=== PATIENT | male | born 1980 | race Caucasian/White ===

== ENCOUNTER 2019-02-12 22:59 | Emergency (ER) | payer OTHER, SELFPAY ==
[2019-02-12 23:15] VITALS: BMI 22.5
--- NOTE | 2019-02-12 23:18 | DI.RAD.S_ITS ---
PROCEDURE: XR KNEE LT 3V INDICATIONS: piano fell on knee TECHNIQUE: 3 views of the knee were acquired. COMPARISON: None. FINDINGS: Bones: No displaced or depressed fracture identified. No dislocation. The joint spaces appear preserved. There is slight lateral tilt of the patella. Soft tissues: There is a moderate size joint effusion with a lipohemarthrosis. No suspicious soft tissue calcifications. IMPRESSION: 1. No displaced or depressed fracture. 2. Moderate-sized lipohemarthrosis is suspicious for an occult fracture. Consider further evaluation with cross-sectional imaging. Findings discussed with Dr. Liu on 02/13/19 at 9:25 AM. Dictated by: Nitin Chappell M.D. on 02/13/2019 at 9:22 Approved by: Nitin Chappell M.D. on 02/13/2019 at 9:25
[2019-02-12 23:22] VITALS: BP 104/71; PULSE 69; RESP 18; O2SAT 100
--- NOTE | 2019-02-12 23:49 | ED_ITS ---
HPI - Extremity Injury (Lower) General Chief Complaint: Extremity Injury, Lower Stated Complaint: Knee injury Time Seen by Provider: 02/12/19 23:49 Source: patient Mode of arrival: Ambulatory Limitations: no limitations History of Present Illness HPI Narrative: Patient is a 38-year-old male who presents with left knee pain. He says he was working on a piano in piano fell on top of his knee medially. He has significant pain it definitely hurts when he walks. Mild tingling sensation in his lower leg. MD complaint: knee injury Onset (ago): hour(s) Type of Injury: blunt Place: home Severity: moderate Relieving factors: nothing Exacerbating factors: weight bearing, movement and palpation Context: direct blow Associated symptoms: swelling and able to partially bear weight Other symptoms: none Treatments prior to arrival: cold therapy Related Data Home Medications Medication Instructions Recorded Confirmed loratadine [Claritin] 10 mg PO Q DAY #0 12/09/10 Allergies Allergy/AdvReac Type Severity Reaction Status Date / Time No Known Drug Allergies Allergy Verified 02/12/19 23:16 Review of Systems Review of Systems Narrative: GENERAL: Denies chills,fever HEENT: Denies throat pain RESPIRATORY: Denies dyspnea, cough, wheezing CARDIOVASCULAR: Denies chest pain, palpitations GASTROINTESTINAL: Denies nausea, vomiting MUSCULOSKELETAL: See HPI SKIN: No rash, no laceration, no pruritus NEUROLOGIC: Denies weakness, dizziness, headache, numbness 8 point review of systems is negative except for those stated above and HPI Patient History Medical History Patient denies medical problems (Acute) Social History Smoking Status: Never smoker Social History Smoking Status: Never smoker Substance Use Type: does not use Exam Initial Vital Signs Initial Vital Signs: Vital Signs Pulse Rate 69 02/12/19 23:22 Respiratory Rate 18 02/12/19 23:22 Blood Pressure 104/71 02/12/19 23:22 Pulse Oximetry 100 02/12/19 23:22 GENERAL: Well-appearing, well-nourished and in no acute distress. CARDIOVASCULAR: peripheral pulses in tact, cap refill <2 sec RESPIRATORY: No respiratory distress, speaks in full sentences without difficulty EXTREMITIES: Normal range of motion, no clubbing or edema. Neurovascularly intact Left lower extremity: Significant swelling superiorly tender medially stable anterior-posterior drawer distal pedal pulse intact. NEUROLOGICAL: Cranial nerves II through XII grossly intact. Normal gait and speech. SKIN: Warm, dry, no petechiae, no rashes or lesions. Course Orders Ordered: ED Orders 02/12/19 23:18 XR knee LT 3V Stat Discontinued Medications Ketorolac Tromethamine (Toradol) 30 mg IM NOW ONE Stop: 02/13/19 00:01 Last Admin: 02/13/19 00:04 Dose: 30 mg Documented by: ATILIO Vital Signs Vital signs: Vital Signs - 8 hr 02/12/19 23:22 02/13/19 00:16 Pulse Rate 69 77 Respiratory Rate 18 14 Blood Pressure 109/65 Blood Pressure [Right Arm] 104/71 Pulse Oximetry 100 99 MDM - Extremity Injury (Lower) Imaging Data Left knee x-ray: Attestation: I personally reviewed and interpreted this imaging study as follows: My impression: No fracture MDM Narrative Medical decision making narrative: Patient does have significant swelling contusion superior and medial of. His discussed with him using crutches knee brace elevation and ice. Also may require outpatient MRI or repeat x-ray if still having significant pain. Discharge Plan Departure Patient Disposition: Home Clinical Impression: Contusion of knee, left Qualifiers: Encounter type: initial encounter Qualified Code(s): S80.02XA - Contusion of left knee, initial encounter Discharge Date/Time: 02/13/19 00:16 Instructions: DI for Knee Sprain Activity Restrictions/Additional Instructions: *You have been diagnosed with left knee contusion *What to do: At this time x-ray is negative. May weight bear as tolerated you may require crutches. Recommend knee brace while active during the day. Ice 20 30 minutes at a time then removed. Elevate. You may require repeat x-ray in 7- 10 days if still having severe pain. He may also require MRI in a few weeks if continuing to have pain and swelling *Continue to take medications as directed Ibuprofen 800 mg every 8 hours with food *Follow up with your primary care provider in 2-3 days *Return to ER if you should have increasing pain, numbness tingling or any new, worsening or concerning symptoms Prescriptions: No Action loratadine [Claritin] 10 MG tablet 10 mg PO Q DAY Qty: 0 RF: 0 Referrals: Kelly Pagan MD [Primary Care Provider] -
[2019-02-13] MEDS: KETOROLAC 60 MG/2 ML VIAL 30 MG IM (00:04)
[2019-02-13 00:16] VITALS: BP 109/65; PULSE 77; RESP 14; O2SAT 99
== END 2019-02-13 00:16 | disposition home or self-care (01) ==
PROVIDERS: Emergency Provider Emergency Medicine; Family Provider Family Medicine; PCP Family Medicine
DX: S80.02XA Contusion of left knee, initial encounter (principal)
CPT/HCPCS: 73562; 96372; 99282; 99283; J1885

== ENCOUNTER 2019-02-13 14:57 | Emergency (ER) | payer OTHER, SELFPAY ==
--- NOTE | 2019-02-13 14:58 | DI.CT.S_ITS ---
PROCEDURE: CT LE LT W CON INDICATIONS: per radiology request, looking for occult fracture TECHNIQUE: Noncontrast 1-1.5 mm axial sections acquired from the mid-patella to the proximal tibia, with coronal and sagittal reformats. COMPARISON: [facility], CR, XR KNEE LT 3V, 02/12/2019, 23:21. FINDINGS: Image quality: Excellent. Bones: Left knee alignment is anatomic. Cortical disruption involving medial periphery of medial femoral condyle is noted suggestive of subtle avulsion fracture involving medial cortex of the femoral condyle at the medial collateral ligament insertion. In addition, there is subtle cortical irregularity involving lateral cortex of proximal tibia shaft just above the level of physis concerning for a subtle incomplete fracture involving lateral portion of proximal tibia. No depression of medial or lateral tibial plateau is seen. No other fracture or dislocation is noted. No patella subluxation. Soft tissues: Significant soft tissue swelling and edema over medial femoral condyle fracture site is seen. A large lipohemarthrosis is noted. Distal quadriceps tendon and patellar tendon are grossly intact. Posterior cruciate ligament is grossly intact. No calcified intra-articular loose body is seen. IMPRESSION: 1. Finding is suggestive of a subtle avulsion injury involving medial cortex of the medial femoral condyle at the proximal medial collateral ligament insertion with overlying soft tissue swelling and edema. 2. Suggestion of subtle incomplete fracture involving the lateral cortex of proximal tibial shaft just above the level of the physis. No evidence of tibial plateau depression. 3. Large lipohemarthrosis. No gross calcified intra-articular loose body. Dictated by: Victor M Cormier M.D. on 02/13/2019 at 16:08 Approved by: Victor M Cormier M.D. on 02/13/2019 at 16:17
[2019-02-13 15:01] VITALS: BP 120/74; PULSE 96; RESP 16; TEMP 36.8; O2SAT 97
--- NOTE | 2019-02-13 15:08 | PC.NURSE ---
Pt called back for CT of Left lower extremity to determine if there is occult fracture. + CSM distally to injury. Swelling worse but no s/s of compartment syndrome. Pain is controlled w/ current regimen.
--- NOTE | 2019-02-13 15:27 | ED.LOWEXIN ---
HPI - Extremity Injury (Lower) General Chief Complaint: Extremity Injury, Lower Stated Complaint: Left knee injury Time Seen by Provider: 02/13/19 15:16 Source: patient Mode of arrival: Ambulatory Limitations: no limitations History of Present Illness HPI Narrative: Patient returns to the emergency department for further evaluation of his left knee after being seen last night for left knee crush injury after piano fell on his leg. Patient was found to have what appeared to be negative x-rays at the time of visit last night was sent home with a knee immobilizer and crutches. However, I was notified by the radiologist this morning that while the bones do appear well, there appears to be a lipohemarthrosis, which radiologist feels is concerning for occult fracture. As such, the patient was called come back to the emergency department versus following up with his primary doctor in an expedited fashion to evaluate his knee with CT scan. Patient states that his pain is better today than it was last night, and he has been able to bear little bit of weight on the left lower extremity, but that it feels ?tight? and is quite enlarged. Related Data Home Medications Medication Instructions Recorded Confirmed loratadine [Claritin] 10 mg PO Q DAY #0 12/09/10 Previous Rx's Medication Instructions Recorded hydrocodone-acetaminophen [Whitmer] 1 tab PO Q4-6H PRN #20 tab 02/13/19 Allergies Allergy/AdvReac Type Severity Reaction Status Date / Time No Known Drug Allergies Allergy Verified 02/12/19 23:16 Review of Systems Constitutional Constitutional: Denies chills, Denies fatigue, Denies fever(s), Denies frequent falls, Denies lethargy and Denies weakness Eyes Eyes: Denies change in vision, Denies eye discharge, Denies irritation and Denies loss of vision ENT Ears, Nose, Mouth, and Throat: Denies change in voice, Denies dizziness, Denies neck pain, Denies sore throat and Denies throat swelling Cardiovascular Cardiovascular: Denies chest pain, Denies irregular heart rhythm, Denies lightheadedness, Denies palpitations, Denies dyspnea, Denies dyspnea on exertion and Denies orthopnea Respiratory Respiratory: Denies cough, Denies dyspnea, Denies dyspnea on exertion and Denies wheezing Gastrointestinal Gastrointestinal: Denies abdominal pain, Denies change in bowel habits, Denies diarrhea, Denies nausea and Denies vomiting Genitourinary Genitourinary: Denies hematuria, Denies flank pain, Denies urinary incontinence and Denies urinary urgency Musculoskeletal Musculoskeletal: Denies back pain, Denies muscle weakness, Denies neck pain, Denies numbness and Denies tingling Comments: Left knee pain and swelling Integumentary/Breasts Skin/Breast: Denies pruritus, Denies erythema, Denies rash and Denies wounds Neurologic Neurologic: Denies behavioral changes, Denies confusion, Denies dizziness, Denies frequent falls, Denies loss of vision, Denies numbness, Denies tingling and Denies weakness Psychiatric Psychiatric: Denies anxiety, Denies behavioral changes, Denies confusion, Denies depression, Denies homicidal ideation and Denies suicidal ideation Endocrine Endocrine: Denies fatigue, Denies flushing and Denies palpitations Hematologic/Lymphatic Hematologic/Lymphatic: Denies easy bruising Allergic/Immunologic Allergic/Immunologic: Denies urticaria, Denies throat swelling and Denies wheezing Patient History Medical History Patient denies medical problems (Acute) Social History Smoking Status: Never smoker Substance Use Type: does not use Exam Initial Vital Signs Initial Vital Signs: Vital Signs Temperature 98.2 F 02/13/19 15:01 Pulse Rate 96 H 02/13/19 15:01 Respiratory Rate 16 02/13/19 15:01 Blood Pressure 120/74 02/13/19 15:01 Pulse Oximetry 97 02/13/19 15:01 Const General: cooperative and well developed Nutritional Appearance: well nourished Orientation: alert, awake, oriented x3 and not confused [facility] Head: normocephalic and atraumatic Ears: external ears normal Nose: external nose normal and No nasal discharge Face and sinus: face symmetric and No dry mucous membranes Mouth: oral mucosae normal and moist mucous membranes Teeth and gingiva: dentition normal Eyes General: appearance normal, both eyes and all related structures Eyelids: eyelids normal Conjunctivae: conjunctivae normal Sclera: sclerae normal Pupils: PERRL EOM: EOM intact bilaterally Neck Neck: normal visual inspection, trachea midline, No lymphadenopathy, No midline deformity and No JVD Lymphatic: No lymphedema Chest Chest: normal inspection of the chest Resp Effort & Inspection: normal respiratory effort, able to speak in complete sentences, no respiratory distress and no use of accessory muscles Back/Spine/Pelvis Back: No CVA tenderness Cervical Spine: cervical ROM normal and No pain with cervical ROM Thoracic/Lumbar Spine: thoracic and lumbar spine normal to inspection Skin General: no rashes or lesions noted, No jaundice and No petechiae Neuro General: alert, oriented x3, gait normal and no focal motor deficits Speech: speech normal Extrem General: full ROM, no clubbing, cyanosis or edema, no pedal edema and no calf tenderness Psych Appearance: well kempt Mental Status: mental status grossly normal Attitude: cooperative Thought Content: normal and suicidality Judgment: judgment good Course Course Course Narrative: Patient was sent for CT scan of his knee, which showed a possible avulsion fracture and possible cortical fracture. I spoke with Dr. Joanne Wood, who is on-call for Orthopedics, and she recommended an MRI for diagnostic clarity. This was done, and showed similar findings. As per Dr. Wood recommendations, the patient was placed in a knee immobilizer. He already has crutches, and is instructed to remain nonweightbearing until he follows up in Orthopedics in about a week. The patient is advised regarding elevation and icing. He is given a prescription for narcotic analgesia to be taken as needed. We have discussed home management of symptoms, as well as the usual indications for return. Orders Ordered: ED Orders 02/13/19 14:58 CT LE LT wo con Stat Vital Signs Vital signs: Vital Signs - 8 hr 02/13/19 15:01 Temperature 98.2 F Pulse Rate 96 H Respiratory Rate 16 Blood Pressure 120/74 Pulse Oximetry 97 MDM - Extremity Injury (Lower) Medical Records Attestation: I reviewed the patient's medical records. Imaging Data CT knee: Radiologist's impression: PROCEDURE: CT LE LT W CON INDICATIONS: per radiology request, looking for occult fracture TECHNIQUE: Noncontrast 1-1.5 mm axial sections acquired from the mid-patella to the proximal tibia, with coronal and sagittal reformats. COMPARISON: Located [facility], CR, XR KNEE LT 3V, 02/12/2019, 23:21. FINDINGS: Image quality: Excellent. Bones: Left knee alignment is anatomic. Cortical disruption involving medial periphery of medial femoral condyle is noted suggestive of subtle avulsion fracture involving medial cortex of the femoral condyle at the medial collateral ligament insertion. In addition, there is subtle cortical irregularity involving lateral cortex of proximal tibia shaft just above the level of physis concerning for a subtle incomplete fracture involving lateral portion of proximal tibia. No depression of medial or lateral tibial plateau is seen. No other fracture or dislocation is noted. No patella subluxation. Soft tissues: Significant soft tissue swelling and edema over medial femoral condyle fracture site is seen. A large lipohemarthrosis is noted. Distal quadriceps tendon and patellar tendon are grossly intact. Posterior cruciate ligament is grossly intact. No calcified intra-articular loose body is seen. IMPRESSION: 1. Finding is suggestive of a subtle avulsion injury involving medial cortex of the medial femoral condyle at the proximal medial collateral ligament insertion with overlying soft tissue swelling and edema. 2. Suggestion of subtle incomplete fracture involving the lateral cortex of proximal tibial shaft just above the level of the physis. No evidence of tibial plateau depression. 3. Large lipohemarthrosis. No gross calcified intra-articular loose body. Dictated by: Victor M Cormier M.D. on 02/13/2019 at 16:08 Approved by: Victor M Cormier M.D. on 02/13/2019 at 16:17 MR knee: Radiologist's impression: PROCEDURE: MR KNEE LT WO CON INDICATIONS: femur/tib fx vs ligamentous injury TECHNIQUE: Noncontrast sagittal PD fast spin echo and T2 fast spin echo with fat saturation, sagittal 3-D FLASH with fat saturation; coronal T1 spin echo and PD fast spin echo with fat saturation, and axial PD fast spin echo with fat saturation through the knee. COMPARISON: None. FINDINGS: Image quality: Excellent. Menisci: The medial and lateral menisci demonstrate normal morphology and internal signal. The meniscal root ligaments appear intact. Cruciate ligaments: The anterior and posterior cruciate ligaments appear intact. Medial structures: Marked soft tissue swelling and edema with subcutaneous soft tissue hematoma formation over anteromedial aspect of right knee adjacent to medial femoral condyle is seen. There is suggestion of low grade partial-thickness tear involving medial collateral ligament at its medial femoral condyle insertion. No full-thickness MCL rupture. The posterior oblique ligament, semimembranosus tendon insertions, oblique popliteal ligament, and meniscocapsular junction appear intact. Visualized portions of the pes anserinus tendons appear normal. Lateral structures: The lateral collateral ligament, long and short heads of the biceps femoris tendon appear intact. The popliteus tendon appears normal; the popliteofibular ligament appears intact. The posterosuperior and anteroinferior popliteomeniscal fascicles appear intact. The arcuate and fabellofibular ligaments appear intact, on either side of the lateral inferior geniculate artery. Iliotibial band appears normal. Anterior structures: The quadriceps and patellar tendons appear intact. Patellar alignment is normal. No femoral trochlear dysplasia or ventral trochlear prominence. No edema in the infrapatellar fat pad. Bones and cartilage: Significant marrow edema along the medial periphery of the medial femoral condyle is seen. Mild edema along lateral periphery of the lateral femoral condyle is also seen. There is cortical disruption involving medial femoral condyle near proximal MCL insertion which was better appreciated on CT study and is consistent with acute avulsion injury in this area. Ill-defined linear hyperintense signal within lateral periphery of lateral femoral condyle, which may represent subcortical fracture versus contusion. There is also mild marrow edema involving medial and lateral periphery of proximal tibia near tibial plateau with subtle underlying linear hypointense signal concerning for incomplete fracture versus contusion in these areas. No displaced fracture is identified. Articulating cartilages are grossly intact. Joint space: There is large lipohemarthrosis. No Tolbert's cyst. No intra-articular loose body. Normal appearing synovial plicae are incidentally noted. IMPRESSION: 1. Finding is consistent with acute avulsion fracture involving the medial periphery of medial femoral condyle near MCL insertion with suggestion of low-grade proximal MCL partial-thickness tear. 2. Contusion versus incomplete subcortical fracture in lateral periphery of lateral femoral condyle, medial and lateral periphery of proximal tibia near the tibial plateau. 3. Large lipohemarthrosis. No gross intra-articular loose body. 4. Cruciate ligaments are intact. No evidence of focal meniscal tear. Distal quadriceps tendon and patellar tendon are intact. Dictated by: Victor M Cormier M.D. on 02/13/2019 at 18:26 Approved by: Victor M Cormier M.D. on 02/13/2019 at 18:32 Discharge Plan Departure Patient Disposition: Home Clinical Impression: Fracture of knee region Traumatic tear of medial collateral ligament of knee Qualifiers: Encounter type: initial encounter Laterality: left Qualified Code(s): S83.412A - Sprain of medial collateral ligament of left knee, initial encounter Discharge Date/Time: 10/16/19 19:25 Instructions: DI for Knee Sprain, DI for Fracture Activity Restrictions/Additional Instructions: Your case has been discussed with the on-call orthopedist, Dr. Wood. She would like you to wear the knee immobilizer and use crutches, and see her next week in clinic. Please take the pain medication as needed. Prescriptions: New hydrocodone-acetaminophen [Whitmer] 5-325 mg tablet 1 tab PO Q4-6H PRN (Reason: pain) Qty: 20 RF: 0 No Action loratadine [Claritin] 10 MG tablet 10 mg PO Q DAY Qty: 0 RF: 0 Referrals: Kelly Pagan MD [Primary Care Provider] -
--- NOTE | 2019-02-13 16:48 | DI.MRI.S_ITS ---
PROCEDURE: MR KNEE LT WO CON INDICATIONS: femur/tib fx vs ligamentous injury TECHNIQUE: Noncontrast sagittal PD fast spin echo and T2 fast spin echo with fat saturation, sagittal 3-D FLASH with fat saturation; coronal T1 spin echo and PD fast spin echo with fat saturation, and axial PD fast spin echo with fat saturation through the knee. COMPARISON: None. FINDINGS: Image quality: Excellent. Menisci: The medial and lateral menisci demonstrate normal morphology and internal signal. The meniscal root ligaments appear intact. Cruciate ligaments: The anterior and posterior cruciate ligaments appear intact. Medial structures: Marked soft tissue swelling and edema with subcutaneous soft tissue hematoma formation over anteromedial aspect of right knee adjacent to medial femoral condyle is seen. There is suggestion of low grade partial-thickness tear involving medial collateral ligament at its medial femoral condyle insertion. No full-thickness MCL rupture. The posterior oblique ligament, semimembranosus tendon insertions, oblique popliteal ligament, and meniscocapsular junction appear intact. Visualized portions of the pes anserinus tendons appear normal. Lateral structures: The lateral collateral ligament, long and short heads of the biceps femoris tendon appear intact. The popliteus tendon appears normal; the popliteofibular ligament appears intact. The posterosuperior and anteroinferior popliteomeniscal fascicles appear intact. The arcuate and fabellofibular ligaments appear intact, on either side of the lateral inferior geniculate artery. Iliotibial band appears normal. Anterior structures: The quadriceps and patellar tendons appear intact. Patellar alignment is normal. No femoral trochlear dysplasia or ventral trochlear prominence. No edema in the infrapatellar fat pad. Bones and cartilage: Significant marrow edema along the medial periphery of the medial femoral condyle is seen. Mild edema along lateral periphery of the lateral femoral condyle is also seen. There is cortical disruption involving medial femoral condyle near proximal MCL insertion which was better appreciated on CT study and is consistent with acute avulsion injury in this area. Ill-defined linear hyperintense signal within lateral periphery of lateral femoral condyle, which may represent subcortical fracture versus contusion. There is also mild marrow edema involving medial and lateral periphery of proximal tibia near tibial plateau with subtle underlying linear hypointense signal concerning for incomplete fracture versus contusion in these areas. No displaced fracture is identified. Articulating cartilages are grossly intact. Joint space: There is large lipohemarthrosis. No Tolbert's cyst. No intra-articular loose body. Normal appearing synovial plicae are incidentally noted. IMPRESSION: 1. Finding is consistent with acute avulsion fracture involving the medial periphery of medial femoral condyle near MCL insertion with suggestion of low-grade proximal MCL partial-thickness tear. 2. Contusion versus incomplete subcortical fracture in lateral periphery of lateral femoral condyle, medial and lateral periphery of proximal tibia near the tibial plateau. 3. Large lipohemarthrosis. No gross intra-articular loose body. 4. Cruciate ligaments are intact. No evidence of focal meniscal tear. Distal quadriceps tendon and patellar tendon are intact. Dictated by: Victor M Cormier M.D. on 02/13/2019 at 18:26 Approved by: Victor M Cormier M.D. on 02/13/2019 at 18:32
[2019-02-13 19:18] VITALS: BP 122/78; PULSE 72; RESP 18; O2SAT 100
== END 2019-02-13 19:25 | disposition home or self-care (01) ==
PROVIDERS: Emergency Provider Emergency Medicine; Family Provider Family Medicine; PCP Family Medicine
DX: S82.002A Unspecified fracture of left patella, initial encounter for closed fracture (principal); S83.412A Sprain of medial collateral ligament of left knee, initial encounter
CPT/HCPCS: 73700; 73721; 99283; 99284

== ENCOUNTER 2019-04-11 09:45 | Outpatient (RCR) | payer OTHER, SELFPAY ==
--- NOTE | 2019-03-06 17:22 | PT.OIE ---
Current Diagnoses Nondisplaced fracture of medial condyle of left femur, initial encounter for closed fracture (03/06/19) Sprain of medial collateral ligament of left knee, initial encounter (03/06/19) Past Medical History (Last Reviewed 02/13/19 @ 15:29 by Margoth Liu MD) Patient denies medical problems (Acute) Visit Care Team Role Provider Type Kelly Pagan MD Primary Care Provider Physician Specialty: [facility] Practice Address: [address] [place] [address], [facility] [place], [address] Email: [email or web address] Joanne Wood MD Attending Provider Physician Specialty: Orthopedic Surgery Address: [address] [place] [address], [place], [address] Email: [email or web address] Initial Evaluation PT-OP-A Visit Information Start: 03/06/19 13:48 Freq: Status: Active Protocol: Document 03/06/19 13:50 HH (Rec: 03/06/19 15:58 [id number]) Out-Patient Physical Therapy Visit Information Visit Information Visit Type Initial Evaluation Visit Note IE led by SAHARA Zamora Visit Start Time 13:50 Visit Stop Time 14:30 Total Visit Minutes 40 Visit Number 05/25 Number of BUSINESS CONTINUITY DIRECTOR Visits 0 Evaluation Information Evaluation Date 03/06/19 Precautions Precautions Avoid knee twisting, valgus, hopping, impact (will reassess duration of restrictions at appointment with Dr. Wood on 03/22/19) PT-OP-B Current Condition Start: 03/06/19 13:48 Freq: Status: Active Protocol: Document 03/06/19 13:50 HH (Rec: 03/06/19 15:58 [id number]) Current Condition History of Current Condition Onset Date 02/12/19 Current Complaints L knee pain, limited ROM, swelling, decreased L LE strength and balance History of Current Condition Pt presents to PT s/p 3 weeks following an accident in which an upright piano fell on the medial side of his L knee, trapping his leg against the ground. Pt went to the ER same day and had an X-ray which was initially negative, but was called back the next day d /t suspision of lipohemarthrosis. Pt had a CT scan and MRI and was diagnosed with a partial MCL tear and closed non displaced avulsion fx of medial condyle of L femur. Pt followed up with Dr. Wood who advised that knee was non-surgical but was given restrictions to keep knee movement in the sagittal plane and avoid twisting, valgus, and impact. Pt was given a hinged knee brace with medial and lateral suport and told to follow up at the end of March to assess healing. Currently pt reports being unable to bend his knee > 90 degrees. He notes that his main limitation is taking care of his 3 young children and playing with them as he is unable to bend down or get onto the floor. Pt also notes that he enjoys playing [employer] and would like to get back to that eventually. Prior Treatments and Tests 03/22/19 f/u appointment with Dr. Wood (4 week ioana from initial visit) Treatment Goals Patient/Caregiver Goals 1. To be able to get to the floor 2. To return to sports such as [employer]. 3. To play with / carry his children Prior Functional Status Baseline Function- ADL's Independent Baseline Function- Mobility Independent Current Functional Impairments (Reported) Functional Limitations- Mobility/Gait Pt reports feeling more unsteady with movement as his L leg feels weak. Functional Limitations- Recreation/ Unable to participate in Hobbies recreational activities. Functional Limitations- Other Pt unable to fully care for and play with his 3 young children as he has difficulty getting down to the floor. Unable to lift and carry objects. PT-OP-C Subjective Start: 03/06/19 13:48 Freq: Status: Active Protocol: Document 03/06/19 13:50 (Rec: 03/06/19 15:58 [id number]) OP-PT Subjective Patient Comments Patient Comments I am worried that my knee doesn't move much and it feels very tight. I would really like to get back to fully playing with my children. Patient Questionnaires Lower Extremity Functional Scale LEFS Score 76 LEFS Impairment 1 to 19% Impaired (Score 63-79 ) OP-PT Pain Assessment Location L medial knee joint line Intensity 2 Scale Used Numeric (1 - 10) Description Aching,Dull Frequency Occasional Pain Aggravating Factors Activity,Exercise,Standing, Stair Climbing,Bending,Lifting Other Pain Aggravating Factors Getting down onto floor Pain Alleviating Factors Inactivity Other Pain Alleviating Factors Bracing PT-OP-D Balance Start: 03/06/19 13:48 Freq: Status: Active Protocol: Document 03/06/19 13:50 HH (Rec: 03/06/19 15:58 [id number]) Balance Tests Single Limb Standing Single Limb- Right >1 min Single Limb- Left 25 sec without brace, increased ankle/knee strategy PT-OP-J Posture/Palpation/Skin Start: 03/06/19 13:48 Freq: Status: Active Protocol: Document 03/06/19 13:50 HH (Rec: 03/06/19 15:58 [id number]) Palpation Assessment Location L knee Palpation Location L knee Palpation Findings Edema,Soft Tissue Tightness, Tenderness Palpation Details General knee edema focal increase around medial knee. Tenderness with palpation over MCL and lateral retinacula. Increase warmth around knee and proximal calf. Skin Assessment Edema Assessment L LE Edema Type Non-Pitting Edema Appearance Puffy Subjective Edema Description Tightness Circumference Measurement R knee Location mid thigh (10 cm above patella superior pull), patella, tibial tuberosity Comments 47, 39, 35.5 L knee Location mid thigh, patella, tibial tuberosity Comments 44, 41, 35.5 Other Assessments Skin Assessment Comments Evidence of resolving bruises medial knee, anterior/medial salmon, medial gastroc PT-OP-K Range of Motion Start: 03/06/19 13:48 Freq: Status: Active Protocol: Document 03/06/19 13:50 HH (Rec: 03/06/19 15:58 [id number]) Knee Goniometric Range of Motion Knee Left Patient Position Supine Flexion Active (degrees) 105 Flexion Passive (degrees) 110 Extension Active (degrees) 2 Extension Passive (degrees) 4 Knee ROM Limitations Knee ROM Limitations Soft Tissue Tightness,Pain, Swelling PT-OP-L Special Tests Start: 03/06/19 13:48 Freq: Status: Active Protocol: Document 03/06/19 13:50 HH (Rec: 03/06/19 15:58 [id number]) Special Tests Other Special Tests Special Tests Unble to assess MCL integrity due to movement restriction from MD. (avoid pivoting/ valgus) -ve tenderness with palpation of calf Dorsalis pedis and posterior tibial pulses 2+ PT-OP-M Strength Start: 03/06/19 13:48 Freq: Status: Active Protocol: Document 03/06/19 13:50 (Rec: 03/06/19 15:58 [id number]) Knee Strength Knee Manual Muscle Testing Left Flexion (S2) 4 Good Extension (L3) 4- Good- Ankle/Foot Strength Ankle and Foot Manual Muscle Testing Left Reason Not Measured WFL PT-OP-Q Treatments Start: 03/06/19 13:48 Freq: Status: Active Protocol: Document 03/06/19 13:50 (Rec: 03/06/19 15:58 [id number]) Therapeutic Exercises Supine Exercises supine SLR Side left supine TKE Side left Equipment Used towel underneath L ankle heel slides Side left Comments as tolerated (end range to end range) Self-Care/Home Management Treatment Education Patient Education Home Exercise Program,Pain Management Other Education Educated pt on relevant anatomy using knee model as guide. Answered pt's questions re: healing time and ways to reduce swelling. Discussed icing for 10 minutes, 2-3 x/ day and movig knee more throughout day to improve swelling. PT-OP-T Assessment and Plan Start: 03/06/19 13:48 Freq: Status: Active Protocol: Document 03/06/19 13:50 (Rec: 03/06/19 15:58 [id number]) Physical Therapy Assessment Rehab Potential Rehabilitation Potential Excellent Evaluation Complexity Number of Personal Factors/Comorbidities 1-2 Number of Body Systems Impaired 1-2 Clinical Presentation at Evaluation Stable Impairments Impairments Activity Tolerance,Balance, Edema,Functional Activities, Functional Mobility,Gait,Pain, ROM,Sensation,Soft Tissue Mobility,Strength,Transfers Goals Anterior reach test Impairment Pt demonstrates excess knee strategy with SLS and limited L LE strength Short Term Goal (STG) Pt will complete anterior reach test with <6cm asymmetry to reduce risk of reinjury STG Duration 6 weeks [facility] Goal (LTG) Pt will complete anterior reach test with <4cm asymmetry and -ve dynamic valgus to indicate reduced risk of reinjury with return to impact activities LTG Duration 12 weeks ROM Impairment Knee AROM limited to 4-105 dg Short Term Goal (STG) Pt will achieve 0-115 dg AROM to improve ability to complete functional movements STG Duration 6 weeks [employer] Goal (LTG) Pt wlil achieve 0-125 dg AROM to improve ability to complete functional movements LTG Duration 12 weeks LEFS Impairment Pt scores 76 for LEFS STG Duration 6 weeks [facility] Goal (LTG) Pt will reach 0% impairment for LEFS to improve his quality of life LTG Duration 12 weeks Squat Impairment Pt is unable to perform any squatting activities Short Term Goal (STG) Pt will be able to perform semi-squat without compensatory weight shift to R side without increase in knee pain STG Duration 6 weeks [employer] As[employer] Goal (LTG) Pt will be able to perform full depth squat without compensatory weight shift to R side and without increase in knee pain, so pt is able to get to floor to play with his children. LTG Duration 12 weeks Assessment Summary Assessment Pt is a low-complexity 38 yo male presenting to PT 3 weeks s/p crush injury to L knee causing L MCL partial tear and medial femoral condyle non- displaced avulsion fx. Pt presents with cont L knee edema with >2 cm difference in mid patellar circumference L> R. Pt's knee edema is significantly limiting his ROM with AROM 4-105 dg flexion. Pt unable to achieve full TKE. Pt also demonstrates decreased L LE strength and balance with increased ankle and knee strategy with single leg stance. Pt reports his main functional limitations are being able to get down to the floor to play with his children and lifting/carrying them as well as the inability to participate in recreational activities. Pt responded well to introduction of HEP. Pt will benefit from skilled therapy to decrease L knee swelling, increase ROM, and strengthen L LE to improve his functional mobility and reduce his risk of reinjury with reintroduction of recreational activities. Physical Therapy Plan Frequency and Duration Frequency of Treatment 1-2x/week Duration of Treatment 12 weeks Plan of Care Start Date 03/06/19 Plan of Care End Date 05/29/19 Therapeutic Interventions Therapeutic Interventions Balance Training,Gait Training ,Home Exercise Program,Joint Mobilizations,Manual Therapy, Orthotic/Prosthetic Management ,Patient/Caregiver Education, Self-Care/Home Management,Soft Tissue Mobilization,Taping, Therapeutic Activities, Therapeutic Exercises Modalities Cold Pack/Ice Massage,Electric Stimulation,Hot Packs, Infrared Therapy Next Visit Focus/Plan Next Note Type Treatment Note Next Visit Plan Review HEP, reassess L knee edema MT to reduce L knee edema, increase ROM, address tissue tightness Progress LE strengthening, introduce SLS exercises Balance
--- NOTE | 2019-03-06 17:28 | PT.OTN ---
Current Diagnoses Nondisplaced fracture of medial condyle of left femur, initial encounter for closed fracture (03/06/19) Sprain of medial collateral ligament of left knee, initial encounter (03/06/19) Physical Therapy Treatment Note PT-OP-A Visit Information Start: 03/06/19 13:48 Freq: Status: Active Protocol: Document 03/06/19 13:50 HH (Rec: 03/06/19 15:58 [id number]) Out-Patient Physical Therapy Visit Information Visit Information Visit Type Initial Evaluation Visit Note IE led by SAHARA Zamora Visit Start Time 13:50 Visit Stop Time 14:30 Total Visit Minutes 40 Visit Number 05/25 Number of POOL CLEANER Visits 0 Evaluation Information Evaluation Date 03/06/19 Precautions Precautions Avoid knee twisting, valgus, hopping, impact (will reassess duration of restrictions at appointment with Dr. Wood on 03/22/19) PT-OP-B Current Condition Start: 03/06/19 13:48 Freq: Status: Active Protocol: Document 03/06/19 13:50 HH (Rec: 03/06/19 15:58 [id number]) Current Condition History of Current Condition Onset Date 02/12/19 Current Complaints L knee pain, limited ROM, swelling, decreased L LE strength and balance History of Current Condition Pt presents to PT s/p 3 weeks following an accident in which an upright piano fell on the medial side of his L knee, trapping his leg against the ground. Pt went to the ER same day and had an X-ray which was initially negative, but was called back the next day d /t suspision of lipohemarthrosis. Pt had a CT scan and MRI and was diagnosed with a partial MCL tear and closed non displaced avulsion fx of medial condyle of L femur. Pt followed up with Dr. Wood who advised that knee was non-surgical but was given restrictions to keep knee movement in the sagittal plane and avoid twisting, valgus, and impact. Pt was given a hinged knee brace with medial and lateral suport and told to follow up at the end of March to assess healing. Currently pt reports being unable to bend his knee > 90 degrees. He notes that his main limitation is taking care of his 3 young children and playing with them as he is unable to bend down or get onto the floor. Pt also notes that he enjoys playing [employer] and would like to get back to that eventually. Prior Treatments and Tests 03/22/19 f/u appointment with Dr. Wood (4 week ioana from initial visit) Treatment Goals Patient/Caregiver Goals 1. To be able to get to the floor 2. To return to sports such as [employer]. 3. To play with / carry his children Prior Functional Status Baseline Function- ADL's Independent Baseline Function- Mobility Independent Current Functional Impairments (Reported) Functional Limitations- Mobility/Gait Pt reports feeling more unsteady with movement as his L leg feels weak. Functional Limitations- Recreation/ Unable to participate in Hobbies recreational activities. Functional Limitations- Other Pt unable to fully care for and play with his 3 young children as he has difficulty getting down to the floor. Unable to lift and carry objects. PT-OP-C Subjective Start: 03/06/19 13:48 Freq: Status: Active Protocol: Document 03/06/19 13:50 HH (Rec: 03/06/19 15:58 [id number]) OP-PT Subjective Patient Comments Patient Comments I am worried that my knee doesn't move much and it feels very tight. I would really like to get back to fully playing with my children. Patient Questionnaires Lower Extremity Functional Scale LEFS Score 76 LEFS Impairment 1 to 19% Impaired (Score 63-79 ) OP-PT Pain Assessment Location L medial knee joint line Intensity 2 Scale Used Numeric (1 - 10) Description Aching,Dull Frequency Occasional Pain Aggravating Factors Activity,Exercise,Standing, Stair Climbing,Bending,Lifting Other Pain Aggravating Factors Getting down onto floor Pain Alleviating Factors Inactivity Other Pain Alleviating Factors Bracing PT-OP-D Balance Start: 03/06/19 13:48 Freq: Status: Active Protocol: Document 03/06/19 13:50 HH (Rec: 03/06/19 15:58 [id number]) Balance Tests Single Limb Standing Single Limb- Right >1 min Single Limb- Left 25 sec without brace, increased ankle/knee strategy PT-OP-J Posture/Palpation/Skin Start: 03/06/19 13:48 Freq: Status: Active Protocol: Document 03/06/19 13:50 HH (Rec: 03/06/19 15:58 [id number]) Palpation Assessment Location L knee Palpation Location L knee Palpation Findings Edema,Soft Tissue Tightness, Tenderness Palpation Details General knee edema focal increase around medial knee. Tenderness with palpation over MCL and lateral retinacula. Increase warmth around knee and proximal calf. Skin Assessment Edema Assessment L LE Edema Type Non-Pitting Edema Appearance Puffy Subjective Edema Description Tightness Circumference Measurement R knee Location mid thigh (10 cm above patella superior pull), patella, tibial tuberosity Comments 47, 39, 35.5 L knee Location mid thigh, patella, tibial tuberosity Comments 44, 41, 35.5 Other Assessments Skin Assessment Comments Evidence of resolving bruises medial knee, anterior/medial salmon, medial gastroc PT-OP-K Range of Motion Start: 03/06/19 13:48 Freq: Status: Active Protocol: Document 03/06/19 13:50 HH (Rec: 03/06/19 15:58 [id number]) Knee Goniometric Range of Motion Knee Left Patient Position Supine Flexion Active (degrees) 105 Flexion Passive (degrees) 110 Extension Active (degrees) 2 Extension Passive (degrees) 4 Knee ROM Limitations Knee ROM Limitations Soft Tissue Tightness,Pain, Swelling PT-OP-L Special Tests Start: 03/06/19 13:48 Freq: Status: Active Protocol: Document 03/06/19 13:50 HH (Rec: 03/06/19 15:58 [id number]) Special Tests Other Special Tests Special Tests Unble to assess MCL integrity due to movement restriction from MD. (avoid pivoting/ valgus) -ve tenderness with palpation of calf Dorsalis pedis and posterior tibial pulses 2+ PT-OP-M Strength Start: 03/06/19 13:48 Freq: Status: Active Protocol: Document 03/06/19 13:50 HH (Rec: 03/06/19 15:58 [id number]) Knee Strength Knee Manual Muscle Testing Left Flexion (S2) 4 Good Extension (L3) 4- Good- Ankle/Foot Strength Ankle and Foot Manual Muscle Testing Left Reason Not Measured WFL PT-OP-Q Treatments Start: 03/06/19 13:48 Freq: Status: Active Protocol: Document 03/06/19 13:50 HH (Rec: 03/06/19 15:58 [id number]) Therapeutic Exercises Supine Exercises supine SLR Side left supine TKE Side left Equipment Used towel underneath L ankle heel slides Side left Comments as tolerated (end range to end range) Self-Care/Home Management Treatment Education Patient Education Home Exercise Program,Pain Management Other Education Educated pt on relevant anatomy using knee model as guide. Answered pt's questions re: healing time and ways to reduce swelling. Discussed icing for 10 minutes, 2-3 x/ day and movig knee more throughout day to improve swelling. PT-OP-T Assessment and Plan Start: 03/06/19 13:48 Freq: Status: Active Protocol: Document 03/06/19 13:50 HH (Rec: 03/06/19 15:58 HH [id number]) Physical Therapy Assessment Rehab Potential Rehabilitation Potential Excellent Evaluation Complexity Number of Personal Factors/Comorbidities 1-2 Number of Body Systems Impaired 1-2 Clinical Presentation at Evaluation Stable Impairments Impairments Activity Tolerance,Balance, Edema,Functional Activities, Functional Mobility,Gait,Pain, ROM,Sensation,Soft Tissue Mobility,Strength,Transfers Goals Anterior reach test Impairment Pt demonstrates excess knee strategy with SLS and limited L LE strength Short Term Goal (STG) Pt will complete anterior reach test with <6cm asymmetry to reduce risk of reinjury STG Duration 6 weeks [facility] Goal (LTG) Pt will complete anterior reach test with <4cm asymmetry and -ve dynamic valgus to indicate reduced risk of reinjury with return to impact activities LTG Duration 12 weeks ROM Impairment Knee AROM limited to 4-105 dg Short Term Goal (STG) Pt will achieve 0-115 dg AROM to improve ability to complete functional movements STG Duration 6 weeks [employer] Wrapper Goal (LTG) Pt wlil achieve 0-125 dg AROM to improve ability to complete functional movements LTG Duration 12 weeks LEFS Impairment Pt scores 76 for LEFS STG Duration 6 weeks [employer] Wrapper Goal (LTG) Pt will reach 0% impairment for LEFS to improve his quality of life LTG Duration 12 weeks Squat Impairment Pt is unable to perform any squatting activities Short Term Goal (STG) Pt will be able to perform semi-squat without compensatory weight shift to R side without increase in knee pain STG Duration 6 weeks [employer] Wrapper Goal (LTG) Pt will be able to perform full depth squat without compensatory weight shift to R side and without increase in knee pain, so pt is able to get to floor to play with his children. LTG Duration 12 weeks Assessment Summary Assessment Pt is a low-complexity 38 yo male presenting to PT 3 weeks s/p crush injury to L knee causing L MCL partial tear and medial femoral condyle non- displaced avulsion fx. Pt presents with cont L knee edema with >2 cm difference in mid patellar circumference L> R. Pt's knee edema is significantly limiting his ROM with AROM 4-105 dg flexion. Pt unable to achieve full TKE. Pt also demonstrates decreased L LE strength and balance with increased ankle and knee strategy with single leg stance. Pt reports his main functional limitations are being able to get down to the floor to play with his children and lifting/carrying them as well as the inability to participate in recreational activities. Pt responded well to introduction of HEP. Pt will benefit from skilled therapy to decrease L knee swelling, increase ROM, and strengthen L LE to improve his functional mobility and reduce his risk of reinjury with reintroduction of recreational activities. Physical Therapy Plan Frequency and Duration Frequency of Treatment 1-2x/week Duration of Treatment 12 weeks Plan of Care Start Date 03/06/19 Plan of Care End Date 05/29/19 Therapeutic Interventions Therapeutic Interventions Balance Training,Gait Training ,Home Exercise Program,Joint Mobilizations,Manual Therapy, Orthotic/Prosthetic Management ,Patient/Caregiver Education, Self-Care/Home Management,Soft Tissue Mobilization,Taping, Therapeutic Activities, Therapeutic Exercises Modalities Cold Pack/Ice Massage,Electric Stimulation,Hot Packs, Infrared Therapy Next Visit Focus/Plan Next Note Type Treatment Note Next Visit Plan Review HEP, reassess L knee edema MT to reduce L knee edema, increase ROM, address tissue tightness Progress LE strengthening, introduce SLS exercises Balance
--- NOTE | 2019-03-14 09:47 | PT.OTN ---
Current Diagnoses Nondisplaced fracture of medial condyle of left femur, initial encounter for closed fracture (03/14/19) Sprain of medial collateral ligament of left knee, initial encounter (03/14/19) Physical Therapy Treatment Note PT-OP-A Visit Information Start: 03/06/19 13:48 Freq: Status: Active Protocol: Document 03/14/19 09:02 HH (Rec: 03/14/19 09:47 [id number]) Out-Patient Physical Therapy Visit Information Visit Information Visit Type Treatment Note Visit Note tx session led by SAHARA Zamora Visit Start Time 09:02 Visit Stop Time 09:46 Total Visit Minutes 44 Visit Number 06/25 Number of PERSONAL SHOPPER Visits 0 PT-OP-B Current Condition Start: 03/06/19 13:48 Freq: Status: Active Protocol: Document 03/06/19 13:50 HH (Rec: 03/06/19 15:58 HH [id number]) Current Condition History of Current Condition Onset Date 02/12/19 Current Complaints L knee pain, limited ROM, swelling, decreased L LE strength and balance History of Current Condition Pt presents to PT s/p 3 weeks following an accident in which an upright piano fell on the medial side of his L knee, trapping his leg against the ground. Pt went to the ER same day and had an X-ray which was initially negative, but was called back the next day d /t suspision of lipohemarthrosis. Pt had a CT scan and MRI and was diagnosed with a partial MCL tear and closed non displaced avulsion fx of medial condyle of L femur. Pt followed up with Dr. Wood who advised that knee was non-surgical but was given restrictions to keep knee movement in the sagittal plane and avoid twisting, valgus, and impact. Pt was given a hinged knee brace with medial and lateral suport and told to follow up at the end of March to assess healing. Currently pt reports being unable to bend his knee > 90 degrees. He notes that his main limitation is taking care of his 3 young children and playing with them as he is unable to bend down or get onto the floor. Pt also notes that he enjoys playing ultimate [email or web address] and would like to get back to that eventually. Prior Treatments and Tests 03/22/19 f/u appointment with Dr. Wood (4 week ioana from initial visit) Treatment Goals Patient/Caregiver Goals 1. To be able to get to the floor 2. To return to sports such as [employer]. 3. To play with / carry his children Prior Functional Status Baseline Function- ADL's Independent Baseline Function- Mobility Independent Current Functional Impairments (Reported) Functional Limitations- Mobility/Gait Pt reports feeling more unsteady with movement as his L leg feels weak. Functional Limitations- Recreation/ Unable to participate in Hobbies recreational activities. Functional Limitations- Other Pt unable to fully care for and play with his 3 young children as he has difficulty getting down to the floor. Unable to lift and carry objects. PT-OP-C Subjective Start: 03/06/19 13:48 Freq: Status: Active Protocol: Document 03/14/19 09:02 HH (Rec: 03/14/19 09:47 HH [id number]) OP-PT Subjective Patient Comments Patient Comments Alysha been doing my exercises and i am able to move more and easier but the brace seems to limit my movements now. Patient Reported Progress Improving PT-OP-D Balance Start: 03/06/19 13:48 Freq: Status: Active Protocol: Document 03/06/19 13:50 HH (Rec: 03/06/19 15:58 [id number]) Balance Tests Single Limb Standing Single Limb- Right >1 min Single Limb- Left 25 sec without brace, increased ankle/knee strategy PT-OP-J Posture/Palpation/Skin Start: 03/06/19 13:48 Freq: Status: Active Protocol: Document 03/06/19 13:50 HH (Rec: 03/06/19 15:58 [id number]) Palpation Assessment Location L knee Palpation Location L knee Palpation Findings Edema,Soft Tissue Tightness, Tenderness Palpation Details General knee edema focal increase around medial knee. Tenderness with palpation over MCL and lateral retinacula. Increase warmth around knee and proximal calf. Skin Assessment Edema Assessment L LE Edema Type Non-Pitting Edema Appearance Puffy Subjective Edema Description Tightness Circumference Measurement R knee Location mid thigh (10 cm above patella superior pull), patella, tibial tuberosity Comments 47, 39, 35.5 L knee Location mid thigh, patella, tibial tuberosity Comments 44, 41, 35.5 Other Assessments Skin Assessment Comments Evidence of resolving bruises medial knee, anterior/medial salmon, medial gastroc PT-OP-K Range of Motion Start: 03/06/19 13:48 Freq: Status: Active Protocol: Document 03/06/19 13:50 HH (Rec: 03/06/19 15:58 [id number]) Knee Goniometric Range of Motion Knee Left Patient Position Supine Flexion Active (degrees) 105 Flexion Passive (degrees) 110 Extension Active (degrees) 2 Extension Passive (degrees) 4 Knee ROM Limitations Knee ROM Limitations Soft Tissue Tightness,Pain, Swelling PT-OP-L Special Tests Start: 03/06/19 13:48 Freq: Status: Active Protocol: Document 03/06/19 13:50 HH (Rec: 03/06/19 15:58 [id number]) Special Tests Other Special Tests Special Tests Unble to assess MCL integrity due to movement restriction from MD. (avoid pivoting/ valgus) -ve tenderness with palpation of calf Dorsalis pedis and posterior tibial pulses 2+ PT-OP-M Strength Start: 03/06/19 13:48 Freq: Status: Active Protocol: Document 03/06/19 13:50 HH (Rec: 03/06/19 15:58 [id number]) Knee Strength Knee Manual Muscle Testing Left Flexion (S2) 4 Good Extension (L3) 4- Good- Ankle/Foot Strength Ankle and Foot Manual Muscle Testing Left Reason Not Measured WFL PT-OP-Q Treatments Start: 03/06/19 13:48 Freq: Status: Active Protocol: Document 03/14/19 09:02 HH (Rec: 03/14/19 09:47 [id number]) Gym Equipment Shuttle Recovery heel raise Details unilateral. Resistance 50# Shuttle Recovery Platform Stable Reps/Time 12 x 2 uni squat Details 50# on L, 75# on R Resistance 50# -75# Shuttle Recovery Platform Stable Reps/Time 10 x2 B squat Resistance 50#- 75# Shuttle Recovery Platform Stable Reps/Time 12 x 2 Therapeutic Exercises Standing Exercises step up Standing Exercise Name 4 and 6 Side bilateral Reps/Minutes 12 x 2 Comments cues on slow eccentric control Manual Therapy Treatment Soft Tissue Mobilization joint fluid drainage Body Location L medial knee Mobilization Type Rolling,Sustained Pressure, Other Intensity/Depth Superficial Body Position Supine Comments proximal stroke PT-OP-T Assessment and Plan Start: 03/06/19 13:48 Freq: Status: Active Protocol: Document 03/14/19 09:02 HH (Rec: 03/14/19 09:47 HH [id number]) Physical Therapy Assessment Goals Anterior reach test Impairment Pt demonstrates excess knee strategy with SLS and limited L LE strength Short Term Goal (STG) Pt will complete anterior reach test with <6cm asymmetry to reduce risk of reinjury STG Duration 6 weeks Prison Goal (LTG) Pt will complete anterior reach test with <4cm asymmetry and -ve dynamic valgus to indicate reduced risk of reinjury with return to impact activities LTG Duration 12 weeks ROM Impairment Knee AROM limited to 4-105 dg Short Term Goal (STG) Pt will achieve 0-115 dg AROM to improve ability to complete functional movements STG Duration 6 weeks Zig Zag Stitcher Goal (LTG) Pt wlil achieve 0-125 dg AROM to improve ability to complete functional movements LTG Duration 12 weeks LEFS Impairment Pt scores 76 for LEFS STG Duration 6 weeks Zig Zag Stitcher Goal (LTG) Pt will reach 0% impairment for LEFS to improve his quality of life LTG Duration 12 weeks Squat Impairment Pt is unable to perform any squatting activities Short Term Goal (STG) Pt will be able to perform semi-squat without compensatory weight shift to R side without increase in knee pain STG Duration 6 weeks Zig Zag Stitcher Goal (LTG) Pt will be able to perform full depth squat without compensatory weight shift to R side and without increase in knee pain, so pt is able to get to floor to play with his children. LTG Duration 12 weeks Assessment Summary Assessment Pt is 4 weeks s/p injury. ROM knee PROM ext= -2 degrees, 0 degree with quad activation. A /PROM flexion= 115 degrees. He was able to reach 120 degrees for L knee flexoin after manual therapy. R single leg squat from table = 17.5 inches , L = 21.5 inches. Pt overall presents instability during step up/ leg press ex. Physical Therapy Plan Next Visit Focus/Plan Next Note Type Treatment Note Next Visit Plan Review HEP, reassess L knee edema MT to reduce L knee edema, increase ROM, address tissue tightness Progress LE strengthening, introduce SLS exercises Balance
--- NOTE | 2019-03-21 09:47 | PT.OTN ---
Current Diagnoses Nondisplaced fracture of medial condyle of left femur, initial encounter for closed fracture (03/21/19) Sprain of medial collateral ligament of left knee, initial encounter (03/21/19) Physical Therapy Treatment Note PT-OP-A Visit Information Start: 03/06/19 13:48 Freq: Status: Active Protocol: Document 03/21/19 09:02 HH (Rec: 03/21/19 09:47 [id number]) Out-Patient Physical Therapy Visit Information Visit Information Visit Type Treatment Note Visit Note tx session led by SAHARA Zamora Visit Start Time 09:02 Visit Stop Time 09:46 Total Visit Minutes 44 Visit Number 07/23 Number of MATERIAL ANALYST Visits 0 PT-OP-B Current Condition Start: 03/06/19 13:48 Freq: Status: Active Protocol: Document 03/06/19 13:50 HH (Rec: 03/06/19 15:58 HH [id number]) Current Condition History of Current Condition Onset Date 02/12/19 Current Complaints L knee pain, limited ROM, swelling, decreased L LE strength and balance History of Current Condition Pt presents to PT s/p 3 weeks following an accident in which an upright piano fell on the medial side of his L knee, trapping his leg against the ground. Pt went to the ER same day and had an X-ray which was initially negative, but was called back the next day d /t suspision of lipohemarthrosis. Pt had a CT scan and MRI and was diagnosed with a partial MCL tear and closed non displaced avulsion fx of medial condyle of L femur. Pt followed up with Dr. Wood who advised that knee was non-surgical but was given restrictions to keep knee movement in the sagittal plane and avoid twisting, valgus, and impact. Pt was given a hinged knee brace with medial and lateral suport and told to follow up at the end of March to assess healing. Currently pt reports being unable to bend his knee > 90 degrees. He notes that his main limitation is taking care of his 3 young children and playing with them as he is unable to bend down or get onto the floor. Pt also notes that he enjoys playing ultimate [employer] and would like to get back to that eventually. Prior Treatments and Tests 03/22/19 f/u appointment with Dr. oWod (4 week ioana from initial visit) Treatment Goals Patient/Caregiver Goals 1. To be able to get to the floor 2. To return to sports such as [employer]. 3. To play with / carry his children Prior Functional Status Baseline Function- ADL's Independent Baseline Function- Mobility Independent Current Functional Impairments (Reported) Functional Limitations- Mobility/Gait Pt reports feeling more unsteady with movement as his L leg feels weak. Functional Limitations- Recreation/ Unable to participate in Hobbies recreational activities. Functional Limitations- Other Pt unable to fully care for and play with his 3 young children as he has difficulty getting down to the floor. Unable to lift and carry objects. PT-OP-C Subjective Start: 03/06/19 13:48 Freq: Status: Active Protocol: Document 03/21/19 09:02 HH (Rec: 03/21/19 09:47 HH [id number]) OP-PT Subjective Patient Comments Patient Comments I didnt get too sore from last time and alysha been walking more. Alysha been using my brace less as well. Im going to see my doctor tomorrow for /u. Patient Reported Progress Improving PT-OP-D Balance Start: 03/06/19 13:48 Freq: Status: Active Protocol: Document 03/06/19 13:50 HH (Rec: 03/06/19 15:58 [id number]) Balance Tests Single Limb Standing Single Limb- Right >1 min Single Limb- Left 25 sec without brace, increased ankle/knee strategy PT-OP-J Posture/Palpation/Skin Start: 03/06/19 13:48 Freq: Status: Active Protocol: Document 03/06/19 13:50 HH (Rec: 03/06/19 15:58 [id number]) Palpation Assessment Location L knee Palpation Location L knee Palpation Findings Edema,Soft Tissue Tightness, Tenderness Palpation Details General knee edema focal increase around medial knee. Tenderness with palpation over MCL and lateral retinacula. Increase warmth around knee and proximal calf. Skin Assessment Edema Assessment L LE Edema Type Non-Pitting Edema Appearance Puffy Subjective Edema Description Tightness Circumference Measurement R knee Location mid thigh (10 cm above patella superior pull), patella, tibial tuberosity Comments 47, 39, 35.5 L knee Location mid thigh, patella, tibial tuberosity Comments 44, 41, 35.5 Other Assessments Skin Assessment Comments Evidence of resolving bruises medial knee, anterior/medial salmon, medial gastroc PT-OP-K Range of Motion Start: 03/06/19 13:48 Freq: Status: Active Protocol: Document 03/06/19 13:50 HH (Rec: 03/06/19 15:58 [id number]) Knee Goniometric Range of Motion Knee Left Patient Position Supine Flexion Active (degrees) 105 Flexion Passive (degrees) 110 Extension Active (degrees) 2 Extension Passive (degrees) 4 Knee ROM Limitations Knee ROM Limitations Soft Tissue Tightness,Pain, Swelling PT-OP-L Special Tests Start: 03/06/19 13:48 Freq: Status: Active Protocol: Document 03/06/19 13:50 HH (Rec: 03/06/19 15:58 [id number]) Special Tests Other Special Tests Special Tests Unble to assess MCL integrity due to movement restriction from MD. (avoid pivoting/ valgus) -ve tenderness with palpation of calf Dorsalis pedis and posterior tibial pulses 2+ PT-OP-M Strength Start: 03/06/19 13:48 Freq: Status: Active Protocol: Document 03/06/19 13:50 HH (Rec: 03/06/19 15:58 [id number]) Knee Strength Knee Manual Muscle Testing Left Flexion (S2) 4 Good Extension (L3) 4- Good- Ankle/Foot Strength Ankle and Foot Manual Muscle Testing Left Reason Not Measured WFL PT-OP-Q Treatments Start: 03/06/19 13:48 Freq: Status: Active Protocol: Document 03/21/19 09:02 HH (Rec: 03/21/19 09:47 [id number]) Therapeutic Exercises Supine Exercises heel slides Side left Comments as tolerated (end range to end range) Standing Exercises TKE Side left Equipment Used level 2 Reps/Minutes 20 x 2 Comments TKE, followed by SLS with L TKE. Gait Training Gait Activity dejan Description L SLS Device Used dejan Surface ground level Distance/Duration in place Treatment Focus SLS on L with L TKE Comments level 2 band on L knee maintaining TKE while R LE step over. Manual Therapy Treatment Soft Tissue Mobilization joint fluid drainage Body Location L medial knee Mobilization Type Rolling,Sustained Pressure, Other Intensity/Depth Superficial Body Position Supine Comments proximal stroke Taping KT Body Location L knee Treatment Focus fluid drainage Type of Tape Kinesio Tape Skin Inspection good Comments 2 I finger strip, and anchor at VMO and lateralis PT-OP-T Assessment and Plan Start: 03/06/19 13:48 Freq: Status: Active Protocol: Document 03/21/19 09:02 (Rec: 03/21/19 09:47 [id number]) Physical Therapy Assessment Goals Anterior reach test Impairment Pt demonstrates excess knee strategy with SLS and limited L LE strength Short Term Goal (STG) Pt will complete anterior reach test with <6cm asymmetry to reduce risk of reinjury STG Duration 6 weeks Halfway Goal (LTG) Pt will complete anterior reach test with <4cm asymmetry and -ve dynamic valgus to indicate reduced risk of reinjury with return to impact activities LTG Duration 12 weeks ROM Impairment Knee AROM limited to 4-105 dg Short Term Goal (STG) Pt will achieve 0-115 dg AROM to improve ability to complete functional movements STG Duration 6 weeks Halfway Goal (LTG) Pt wlil achieve 0-125 dg AROM to improve ability to complete functional movements LTG Duration 12 weeks LEFS Impairment Pt scores 76 for LEFS STG Duration 6 weeks Commercial Property Administrator Goal (LTG) Pt will reach 0% impairment for LEFS to improve his quality of life LTG Duration 12 weeks Assessment Summary Assessment L knee AROM ext= 0 degree, relaxed= -3 to -5 degree; flexion AROM= 125 degree. Mid- patella=40.5 cm. Pt reports he doesnt have much pain at this point but does have instability for sagittal plane movements. Focused on gait training (stance phase) with maintaining TKE on L Physical Therapy Plan Next Visit Focus/Plan Next Note Type Treatment Note Next Visit Plan Review HEP, reassess L knee edema MT to reduce L knee edema, increase ROM, address tissue tightness Progress LE strengthening, introduce SLS exercises Balance
--- NOTE | 2019-03-26 16:52 | PT.OTN ---
Current Diagnoses Nondisplaced fracture of medial condyle of left femur, initial encounter for closed fracture (03/26/19) Sprain of medial collateral ligament of left knee, initial encounter (03/26/19) Physical Therapy Treatment Note PT-OP-A Visit Information Start: 03/06/19 13:48 Freq: Status: Active Protocol: Document 03/26/19 16:05 HH (Rec: 03/26/19 16:43 [id number]) Out-Patient Physical Therapy Visit Information Visit Information Visit Type Treatment Note Visit Note tx session led by SAHARA Zamora Visit Start Time 16:05 Visit Stop Time 16:46 Total Visit Minutes 41 Visit Number 08/23 Number of FURNACE AND WASH EQUIPMENT OPERATOR Visits 0 PT-OP-B Current Condition Start: 03/06/19 13:48 Freq: Status: Active Protocol: Document 03/06/19 13:50 HH (Rec: 03/06/19 15:58 [id number]) Current Condition History of Current Condition Onset Date 02/12/19 Current Complaints L knee pain, limited ROM, swelling, decreased L LE strength and balance History of Current Condition Pt presents to PT s/p 3 weeks following an accident in which an upright piano fell on the medial side of his L knee, trapping his leg against the ground. Pt went to the ER same day and had an X-ray which was initially negative, but was called back the next day d /t suspision of lipohemarthrosis. Pt had a CT scan and MRI and was diagnosed with a partial MCL tear and closed non displaced avulsion fx of medial condyle of L femur. Pt followed up with Dr. Wood who advised that knee was non-surgical but was given restrictions to keep knee movement in the sagittal plane and avoid twisting, valgus, and impact. Pt was given a hinged knee brace with medial and lateral suport and told to follow up at the end of March to assess healing. Currently pt reports being unable to bend his knee > 90 degrees. He notes that his main limitation is taking care of his 3 young children and playing with them as he is unable to bend down or get onto the floor. Pt also notes that he enjoys playing ultimate [employer] and would like to get back to that eventually. Prior Treatments and Tests 03/22/19 f/u appointment with Dr. Wood (4 week ioana from initial visit) Treatment Goals Patient/Caregiver Goals 1. To be able to get to the floor 2. To return to sports such as [employer]. 3. To play with / carry his children Prior Functional Status Baseline Function- ADL's Independent Baseline Function- Mobility Independent Current Functional Impairments (Reported) Functional Limitations- Mobility/Gait Pt reports feeling more unsteady with movement as his L leg feels weak. Functional Limitations- Recreation/ Unable to participate in Hobbies recreational activities. Functional Limitations- Other Pt unable to fully care for and play with his 3 young children as he has difficulty getting down to the floor. Unable to lift and carry objects. PT-OP-C Subjective Start: 03/06/19 13:48 Freq: Status: Active Protocol: Document 03/26/19 16:05 HH (Rec: 03/26/19 16:43 HH [id number]) OP-PT Subjective Patient Comments Patient Comments I saw Dr. Wood and she said my bone is almost completely healed and just only slight instability for my MCL. She still recommended me to be cautious with multiplanar movements. Besides, my knee ROM is getting better. Patient Reported Progress Improving PT-OP-D Balance Start: 03/06/19 13:48 Freq: Status: Active Protocol: Document 03/06/19 13:50 HH (Rec: 03/06/19 15:58 [id number]) Balance Tests Single Limb Standing Single Limb- Right >1 min Single Limb- Left 25 sec without brace, increased ankle/knee strategy PT-OP-J Posture/Palpation/Skin Start: 03/06/19 13:48 Freq: Status: Active Protocol: Document 03/06/19 13:50 HH (Rec: 03/06/19 15:58 [id number]) Palpation Assessment Location L knee Palpation Location L knee Palpation Findings Edema,Soft Tissue Tightness, Tenderness Palpation Details General knee edema focal increase around medial knee. Tenderness with palpation over MCL and lateral retinacula. Increase warmth around knee and proximal calf. Skin Assessment Edema Assessment L LE Edema Type Non-Pitting Edema Appearance Puffy Subjective Edema Description Tightness Circumference Measurement R knee Location mid thigh (10 cm above patella superior pull), patella, tibial tuberosity Comments 47, 39, 35.5 L knee Location mid thigh, patella, tibial tuberosity Comments 44, 41, 35.5 Other Assessments Skin Assessment Comments Evidence of resolving bruises medial knee, anterior/medial salmon, medial gastroc PT-OP-K Range of Motion Start: 03/06/19 13:48 Freq: Status: Active Protocol: Document 03/06/19 13:50 HH (Rec: 03/06/19 15:58 HH [id number]) Knee Goniometric Range of Motion Knee Left Patient Position Supine Flexion Active (degrees) 105 Flexion Passive (degrees) 110 Extension Active (degrees) 2 Extension Passive (degrees) 4 Knee ROM Limitations Knee ROM Limitations Soft Tissue Tightness,Pain, Swelling PT-OP-L Special Tests Start: 03/06/19 13:48 Freq: Status: Active Protocol: Document 03/06/19 13:50 HH (Rec: 03/06/19 15:58 HH [id number]) Special Tests Other Special Tests Special Tests Unble to assess MCL integrity due to movement restriction from MD. (avoid pivoting/ valgus) -ve tenderness with palpation of calf Dorsalis pedis and posterior tibial pulses 2+ PT-OP-M Strength Start: 03/06/19 13:48 Freq: Status: Active Protocol: Document 03/06/19 13:50 HH (Rec: 03/06/19 15:58 [id number]) Knee Strength Knee Manual Muscle Testing Left Flexion (S2) 4 Good Extension (L3) 4- Good- Ankle/Foot Strength Ankle and Foot Manual Muscle Testing Left Reason Not Measured WFL PT-OP-Q Treatments Start: 03/06/19 13:48 Freq: Status: Active Protocol: Document 03/26/19 16:05 HH (Rec: 03/26/19 16:43 HH [id number]) Cardio Equipment Bicycle (Upright) Duration (Minutes) 1 Resistance 0 Therapeutic Exercises Supine Exercises heel slides Side left Comments as tolerated (end range to end range) Standing Exercises star excursion Standing Exercise Name 3 way star Side left Reps/Minutes 9 x 3 Comments forward, sideway, backward. STS Standing Exercise Name mid range STS Equipment Used grab bar support Reps/Minutes 10 x2 Comments pt c/o knee popping and increased pressure at bottom of squat. TKE Side left Equipment Used level 4 Reps/Minutes 20 x 2 Comments TKE, followed by SLS with L TKE. step up Standing Exercise Name 6 Side bilateral Reps/Minutes 12 x 2 Comments cues on slow eccentric control Gait Training Gait Activity dejan Description L SLS Device Used dejan Surface ground level Distance/Duration in place Treatment Focus SLS on L with L TKE Comments level 4 band on L knee maintaining TKE while R LE step over. Manual Therapy Treatment Soft Tissue Mobilization joint fluid drainage Body Location L medial knee Mobilization Type Rolling,Sustained Pressure, Other Intensity/Depth Superficial Body Position Supine Comments proximal stroke PT-OP-T Assessment and Plan Start: 03/06/19 13:48 Freq: Status: Active Protocol: Document 03/26/19 16:05 (Rec: 03/26/19 16:43 [id number]) Physical Therapy Assessment Goals Anterior reach test Impairment Pt demonstrates excess knee strategy with SLS and limited L LE strength Short Term Goal (STG) Pt will complete anterior reach test with <6cm asymmetry to reduce risk of reinjury STG Duration 6 weeks Regional Facilities Specialist Goal (LTG) Pt will complete anterior reach test with <4cm asymmetry and -ve dynamic valgus to indicate reduced risk of reinjury with return to impact activities LTG Duration 12 weeks ROM Impairment Knee AROM limited to 4-105 dg Short Term Goal (STG) Pt will achieve 0-115 dg AROM to improve ability to complete functional movements STG Duration 6 weeks Regional Facilities Specialist Goal (LTG) Pt wlil achieve 0-125 dg AROM to improve ability to complete functional movements LTG Duration 12 weeks LEFS Impairment Pt scores 76 for LEFS STG Duration 6 weeks Regional Facilities Specialist Goal (LTG) Pt will reach 0% impairment for LEFS to improve his quality of life LTG Duration 12 weeks Squat Impairment Pt is unable to perform any squatting activities Short Term Goal (STG) Pt will be able to perform semi-squat without compensatory weight shift to R side without increase in knee pain STG Duration 6 weeks Regional Facilities Specialist Goal (LTG) Pt will be able to perform full depth squat without compensatory weight shift to R side and without increase in knee pain, so pt is able to get to floor to play with his children. LTG Duration 12 weeks Assessment Summary Assessment Pt cont to improve in ROM and strength.L knee AROM ext=0, flex= 135. Pt requested to have next PT appt in mid-Mar due to copay. Added new HEP with STS, star excursion, step up and TKE. Pt has difficulty performing squat due to popping sensation and increased pressure. Modified to mid range STS with UE support. Physical Therapy Plan Next Visit Focus/Plan Next Note Type Treatment Note Next Visit Plan Review HEP, reassess L knee edema MT to reduce L knee edema, increase ROM, address tissue tightness Progress LE strengthening, introduce SLS exercises Balance
--- NOTE | 2019-04-11 12:09 | PT.OTN ---
Current Diagnoses Nondisplaced fracture of medial condyle of left femur, initial encounter for closed fracture (04/11/19) Sprain of medial collateral ligament of left knee, initial encounter (04/11/19) Physical Therapy Treatment Note PT-OP-A Visit Information Start: 03/06/19 13:48 Freq: Status: Active Protocol: Document 04/11/19 09:48 HH (Rec: 04/11/19 10:37 HH [id number]) Out-Patient Physical Therapy Visit Information Visit Information Visit Type Treatment Note Visit Note tx session led by SAHARA Zamora Visit Start Time 09:48 Visit Stop Time 10:30 Total Visit Minutes 42 Visit Number 09/22 Number of MEDICAL OFFICE ASSISTANT Visits 0 PT-OP-B Current Condition Start: 03/06/19 13:48 Freq: Status: Active Protocol: Document 03/06/19 13:50 HH (Rec: 03/06/19 15:58 HH [id number]) Current Condition History of Current Condition Onset Date 02/12/19 Current Complaints L knee pain, limited ROM, swelling, decreased L LE strength and balance History of Current Condition Pt presents to PT s/p 3 weeks following an accident in which an upright piano fell on the medial side of his L knee, trapping his leg against the ground. Pt went to the ER same day and had an X-ray which was initially negative, but was called back the next day d /t suspision of lipohemarthrosis. Pt had a CT scan and MRI and was diagnosed with a partial MCL tear and closed non displaced avulsion fx of medial condyle of L femur. Pt followed up with Dr. Wood who advised that knee was non-surgical but was given restrictions to keep knee movement in the sagittal plane and avoid twisting, valgus, and impact. Pt was given a hinged knee brace with medial and lateral suport and told to follow up at the end of March to assess healing. Currently pt reports being unable to bend his knee > 90 degrees. He notes that his main limitation is taking care of his 3 young children and playing with them as he is unable to bend down or get onto the floor. Pt also notes that he enjoys playing ultimate [employer] and would like to get back to that eventually. Prior Treatments and Tests 03/22/19 f/u appointment with Dr. Wood (4 week ioana from initial visit) Treatment Goals Patient/Caregiver Goals 1. To be able to get to the floor 2. To return to sports such as [employer]. 3. To play with / carry his children Prior Functional Status Baseline Function- ADL's Independent Baseline Function- Mobility Independent Current Functional Impairments (Reported) Functional Limitations- Mobility/Gait Pt reports feeling more unsteady with movement as his L leg feels weak. Functional Limitations- Recreation/ Unable to participate in Hobbies recreational activities. Functional Limitations- Other Pt unable to fully care for and play with his 3 young children as he has difficulty getting down to the floor. Unable to lift and carry objects. PT-OP-C Subjective Start: 03/06/19 13:48 Freq: Status: Active Protocol: Document 04/11/19 09:48 HH (Rec: 04/11/19 10:37 HH [id number]) OP-PT Subjective Patient Comments Patient Comments Alysha been doing pretty good and doing much more. Kneeling position to play with my kids is still creating some pressure on my L knee. Patient Reported Progress Improving PT-OP-D Balance Start: 03/06/19 13:48 Freq: Status: Active Protocol: Document 03/06/19 13:50 HH (Rec: 03/06/19 15:58 [id number]) Balance Tests Single Limb Standing Single Limb- Right >1 min Single Limb- Left 25 sec without brace, increased ankle/knee strategy PT-OP-J Posture/Palpation/Skin Start: 03/06/19 13:48 Freq: Status: Active Protocol: Document 03/06/19 13:50 HH (Rec: 03/06/19 15:58 [id number]) Palpation Assessment Location L knee Palpation Location L knee Palpation Findings Edema,Soft Tissue Tightness, Tenderness Palpation Details General knee edema focal increase around medial knee. Tenderness with palpation over MCL and lateral retinacula. Increase warmth around knee and proximal calf. Skin Assessment Edema Assessment L LE Edema Type Non-Pitting Edema Appearance Puffy Subjective Edema Description Tightness Circumference Measurement R knee Location mid thigh (10 cm above patella superior pull), patella, tibial tuberosity Comments 47, 39, 35.5 L knee Location mid thigh, patella, tibial tuberosity Comments 44, 41, 35.5 Other Assessments Skin Assessment Comments Evidence of resolving bruises medial knee, anterior/medial salmon, medial gastroc PT-OP-K Range of Motion Start: 03/06/19 13:48 Freq: Status: Active Protocol: Document 03/06/19 13:50 HH (Rec: 03/06/19 15:58 HH [id number]) Knee Goniometric Range of Motion Knee Left Patient Position Supine Flexion Active (degrees) 105 Flexion Passive (degrees) 110 Extension Active (degrees) 2 Extension Passive (degrees) 4 Knee ROM Limitations Knee ROM Limitations Soft Tissue Tightness,Pain, Swelling PT-OP-L Special Tests Start: 03/06/19 13:48 Freq: Status: Active Protocol: Document 03/06/19 13:50 HH (Rec: 03/06/19 15:58 HH [id number]) Special Tests Other Special Tests Special Tests Unble to assess MCL integrity due to movement restriction from MD. (avoid pivoting/ valgus) -ve tenderness with palpation of calf Dorsalis pedis and posterior tibial pulses 2+ PT-OP-M Strength Start: 03/06/19 13:48 Freq: Status: Active Protocol: Document 03/06/19 13:50 HH (Rec: 03/06/19 15:58 [id number]) Knee Strength Knee Manual Muscle Testing Left Flexion (S2) 4 Good Extension (L3) 4- Good- Ankle/Foot Strength Ankle and Foot Manual Muscle Testing Left Reason Not Measured WFL PT-OP-Q Treatments Start: 03/06/19 13:48 Freq: Status: Active Protocol: Document 04/11/19 09:48 HH (Rec: 04/11/19 10:37 [id number]) Cardio Equipment Recumbent Bicycle Duration (Minutes) 8 Resistance 3 Other -ve knee popping or c/o pressure Therapeutic Exercises Standing Exercises SLS Side bilateral Equipment Used green foam Reps/Minutes 30 secs x 4 full squat Standing Exercise Name full squat f/b pause squat Side bilateral Equipment Used grab bar Reps/Minutes 8 x2 f/b pause squat 3 sec hold x 5 star excursion Standing Exercise Name 3 way star Side left Reps/Minutes 9 x 3 Comments forward, sideway, backward. STS Standing Exercise Name mid range STS Equipment Used without support Reps/Minutes 15 x3 Comments -ve knee popping at bottom of squat; R weight shift, improved with cuing TKE Side left Equipment Used level 4 Reps/Minutes 20 x 2 Comments TKE, followed by SLS with L TKE. step up Standing Exercise Name 6 Side bilateral Reps/Minutes 12 x 2 Comments cues on slow eccentric control PT-OP-T Assessment and Plan Start: 03/06/19 13:48 Freq: Status: Active Protocol: Document 04/11/19 09:48 HH (Rec: 04/11/19 10:37 HH [id number]) Physical Therapy Assessment Goals Anterior reach test Impairment Pt demonstrates excess knee strategy with SLS and limited L LE strength Short Term Goal (STG) 04/11 goal met: Pt will complete anterior reach test with <6cm asymmetry to reduce risk of reinjury STG Duration 6 weeks [employer] Floor Supervisor Goal (LTG) 04/11 progressing: <4 cm asymmetry but cont +ve valgus on L LE Pt will complete anterior reach test with <4cm asymmetry and -ve dynamic valgus to indicate reduced risk of reinjury with return to impact activities LTG Duration 12 weeks ROM Impairment Knee AROM limited to 4-105 dg Short Term Goal (STG) Pt will achieve 0-115 dg AROM to improve ability to complete functional movements STG Duration 6 weeks Correction Goal (LTG) 04/11 goal met: Pt wlil achieve 0-125 dg AROM to improve ability to complete functional movements LTG Duration 12 weeks LEFS Impairment Pt scores 76 for LEFS STG Duration 6 weeks [employer] Floor Supervisor Goal (LTG) 04/11: not assessed Pt will reach 0% impairment for LEFS to improve his quality of life LTG Duration 12 weeks Squat Impairment Pt is unable to perform any squatting activities Short Term Goal (STG) 04/11 goal met: Pt will be able to perform semi-squat without compensatory weight shift to R side without increase in knee pain STG Duration 6 weeks [employer] Floor Supervisor Goal (LTG) 04/11 progressing: pt cont to demonstrate comp R weight shift at bottom on squat Pt will be able to perform full depth squat without compensatory weight shift to R side and without increase in knee pain, so pt is able to get to floor to play with his children. LTG Duration 12 weeks Assessment Summary Assessment L knee AROM and mid patellar girth measurement symmetrical to R LE. Pt cont to demonstrate difficulty maintaining TKE during gait and strengthening activities, improved with TKE ther ex. Progressing on goals but cont to demonstrate limited L WBing and stability. Updated HEP to address weight shifting and L LE stability. Pt plans to work on HEP I for 2-3 weeks before reassessing for potential d/c. Physical Therapy Plan Next Visit Focus/Plan Next Note Type Treatment Note Next Visit Plan Review HEP Progress strengthening/ stability exercises as joey Potential d/c
== END 2019-05-16 12:09 ==
LOC: PHYS 09:45
PROVIDERS: PCP Family Medicine; Visit Provider Orthopaedic Surgery
DX: S83.412A Sprain of medial collateral ligament of left knee, initial encounter (principal); S72.435A Nondisplaced fracture of medial condyle of left femur, initial encounter for closed fracture
CPT/HCPCS: 97110; 97116; 97140; 97161; 97535

== ENCOUNTER → 2020-09-08 15:04 | Outpatient (CLI) | payer OTHER, SELFPAY ==
--- NOTE | 2020-09-08 15:10 | DI.RAD.S_ITS ---
PROCEDURE: XR CHEST 2V INDICATIONS: COUGH,WHEEZING, S/P COVID TECHNIQUE: 2 views of the chest were acquired. COMPARISON: None. FINDINGS: Surgical changes and devices: None. Lungs and pleura: Lungs are abnormal with relatively large lung volumes consistent with COPD. At the posterior left lower lobe and the medial right lung base there appears to be mild or early pneumonia, left greater than right.. No pleural effusions or pneumothorax. Mediastinum: Mediastinal contours are normal. Heart size is normal. Bones and chest wall: No suspicious bony abnormalities. Soft tissues appear unremarkable. IMPRESSION: Suspect COPD and bibasilar pneumonia, left greater than right. No pleural effusion seen. Dictated by: Olvin Bales M.D. on 09/08/2020 at 16:55 Approved by: Olvin Bales M.D. on 09/08/2020 at 17:15
== END ==
PROVIDERS: PCP Family Medicine; Referring Provider Family Medicine; Visit Provider Family Medicine
DX: R05 Cough (principal); R06.2 Wheezing; Z86.16 Personal history of COVID-19
CPT/HCPCS: 71046

== ENCOUNTER → 2024-06-19 15:46 | Outpatient (CLI) | payer OTHER, SELFPAY ==
--- NOTE | 2024-06-19 15:49 | DI.RAD.S_ITS ---
PROCEDURE: XR CHEST 2V INDICATIONS: COUGH TECHNIQUE: 2 views of the chest were acquired. COMPARISON: [facility], CR, XR CHEST 2V, 09/08/2020, 15:09. FINDINGS: Surgical changes and devices: None. Lungs and pleura: Lungs are clear. No pleural effusions or pneumothorax. Mediastinum: Mediastinal contours are normal. Heart size is normal. Bones and chest wall: No suspicious bony abnormalities. Soft tissues appear unremarkable. IMPRESSION: No acute cardiopulmonary abnormality is seen. Dictated by: Tim Acosta M.D. on 06/19/2024 at 16:35 Approved by: Tim Acosta M.D. on 06/19/2024 at 16:35
== END ==
PROVIDERS: PCP Family Medicine; Referring Provider Family Medicine; Visit Provider Family Medicine
DX: R05.1 Acute cough (principal); R50.9 Fever, unspecified
CPT/HCPCS: 71046

== ENCOUNTER → 2024-06-20 15:17 | Outpatient (CLI) | payer OTHER, SELFPAY ==
[2024-06-20 16:19] LABS: Add Manual Diff / Slide Review NO; Basophils Absolute Auto 0 /uL (0-100); Basophils Percent Auto 0.3 % (0-2); Eosinophils Absolute Auto 0 /uL (0-450); Eosinophils Percent Auto 0.5 % (2-4); Hematocrit 44.8 % (41-53); Hemoglobin 15.7 g/dL (13.5-17.5); Lymphocytes Absolute Auto 1300 /uL (1100-4500); Lymphocytes Percent Auto 17.5 % (25-40); Mean Corpuscular Hemoglobin 30.7 PG (26-34); Mean Corpuscular Volume 87.6 fL (80-100); Monocytes Absolute Auto 800 /uL (0-900); Monocytes Percent Auto 10.7 % (3-14); Neutrophils Absolute Auto 5200 /uL (1500-7000); Platelet Count 178 X10^3/uL (150-400); Red Blood Cell Count 5.12 X10^6/uL (4.5-5.9); Red Cell Distribution Width 12.7 % (11.6-14.8); White Blood Cell Count 7.3 X10^3/uL (4.5-11.0)
[2024-06-20 16:36] LABS: Alanine Aminotransferase 26 IU/L (<50); Albumin 4.6 g/dL (3.5-5.0); Albumin Globulin Ratio 1.7 (1.0-2.8); Alkaline Phosphatase 58 U/L (38-126); Aspartate Aminotransferase 28 IU/L (17-59); Bilirubin Total 0.6 mg/dL (0.2-1.3); Blood Urea Nitrogen 16 mg/dL (9-20); Calcium 9.4 mg/dL (8.4-10.2); Carbon Dioxide 27 mmol/L (22-32); Chloride 103 mmol/L (98-107); Estimated Glomerular Filt Rate > 60 mL/min (>60); Globulin 2.7 g/dL (1.7-4.1); Glucose 87 mg/dL (70-100); HEMOLYSIS < 15 (0-50); Potassium 4.3 mmol/L (3.4-5.1); Sodium 139 mmol/L (137-145); Total Protein 7.3 g/dL (6.3-8.2)
[2024-06-20 16:52] LABS: Monotest Negative (Negative)
== END ==
LOC: LAB 15:18
PROVIDERS: PCP Family Medicine; Referring Provider Family Medicine; Visit Provider Family Medicine
DX: R05.1 Acute cough (principal)
CPT/HCPCS: 36415; 80053; 85025; 86318